=== PATIENT | female | born 1980 | race Caucasian/White ===

== ENCOUNTER 2018-04-03 08:47 | Emergency (ER) | payer OTHER ==
[2018-04-03] MEDS: METOCLOPRAMIDE INJ 10MG/2ML VIAL (J2765) IV (09:30)
[2018-04-03] MEDS: NS 1,000 ML IV (09:30)
[2018-04-03 09:40] LABS: BASO % 0.4 % (0.0-1.0); EOS % 0.4 % (0.0-3.0); HEMATOCRIT 36.6 % (36.0-47.0); HEMOGLOBIN 12.7 g/dl (12.0-15.5); IMMATURE GRANULOCYTE % 0.6 % (0-3.0); LYMPH # 1.4 10^3/uL (1.5-4.5); LYMPH % 26.6 % (24.0-44.0); MEAN CORPUSCULAR HEMOGLOBIN 31.8 pg (27.0-33.0); MEAN CORPUSCULAR HGB CONC 34.7 g/dl (32.0-36.5); MEAN CORPUSCULAR VOLUME 91.7 fl (80.0-96.0); MONO # 0.6 10^3/uL (0.0-0.8); MONO % 11.6 % (0.0-5.0); NEUTROPHILS # 3.2 10^3/uL (1.8-7.7); NEUTROPHILS % 60.4 % (36.0-66.0); PLATELET COUNT, AUTOMATED 221 10^3/uL (150-450); RED BLOOD COUNT 3.99 10^6/uL (4.00-5.40); RED CELL DISTRIBUTION WIDTH 12.1 % (11.5-14.5); WHITE BLOOD COUNT 5.3 10^3/uL (4.0-10.0)
[2018-04-03 10:33] LABS: ANION GAP 9 MEQ/L (8-16); BLOOD UREA NITROGEN 11 MG/DL (7-18); CARBON DIOXIDE LEVEL 25 MEQ/L (21-32); CHLORIDE LEVEL 101 MEQ/L (98-107); CREATININE FOR GFR 0.62 MG/DL (0.55-1.30); GLOMERULAR FILTRATION RATE > 60.0 (>60); GLUCOSE, FASTING 78 MG/DL (70-100); HCG, SERUM QUANTITATIVE 146742 MIU/ML; POTASSIUM SERUM 3.3 MEQ/L (3.5-5.1); SODIUM LEVEL 135 MEQ/L (136-145)
[2018-04-03] MEDS: POTASSIUM CHLORIDE 10 MEQ SR TABLET PO (11:08)
== END 2018-04-03 11:46 | disposition home or self-care (01) ==
LOC: M ED 08:47
DX: O21.9 Vomiting of pregnancy, unspecified (principal); O99.89 Other specified diseases and conditions complicating pregnancy, childbirth and the puerperium; M79.7 Fibromyalgia; M51.9 Unspecified thoracic, thoracolumbar and lumbosacral intervertebral disc disorder; Z3A.00 Weeks of gestation of pregnancy not specified; Z79.890 Hormone replacement therapy; Z98.890 Other specified postprocedural states; Z88.8 Allergy status to other drugs, medicaments and biological substances; Z88.5 Allergy status to narcotic agent
CPT/HCPCS: J2765

== ENCOUNTER → 2018-04-13 | Outpatient (CLI) | payer OTHER ==
[2018-04-13 14:05] LABS: BASO % 0.2 % (0.0-1.0); HEMATOCRIT 34.8 % (36.0-47.0); HEMOGLOBIN 11.5 g/dl (12.0-15.5); IMMATURE GRANULOCYTE % 0.6 % (0-3.0); LYMPH # 2.3 10^3/uL (1.5-4.5); LYMPH % 24.2 % (24.0-44.0); MEAN CORPUSCULAR HEMOGLOBIN 31.5 pg (27.0-33.0); MEAN CORPUSCULAR VOLUME 95.3 fl (80.0-96.0); MONO % 10.3 % (0.0-5.0); NEUTROPHILS % 64.7 % (36.0-66.0); PLATELET COUNT, AUTOMATED 290 10^3/uL (150-450); RED BLOOD COUNT 3.65 10^6/uL (4.00-5.40); RED CELL DISTRIBUTION WIDTH 12.9 % (11.5-14.5); WHITE BLOOD COUNT 9.3 10^3/uL (4.0-10.0)
[2018-04-13 14:32] LABS: FREE T4 1.28 NG/DL (0.76-1.46)
[2018-04-13 15:42] LABS: CHLAMYDIA DNA AMPLIFICATION NEGATIVE (NEGATIVE); GC DNA AMPLIFICATION NEGATIVE (NEGATIVE)
[2018-04-14 12:04] LABS: RUBELLA IgG QUALITATIVE SUSCEPTIBLE (IMMUNE)
[2018-04-14 12:19] LABS: HBsAg Prenatal NEGATIVE (NEGATIVE)
[2018-04-14 12:42] LABS: HEPATITIS C VIRUS ABY INDEX < 0.0 INDEX (<0.8)
[2018-04-14 12:42] LABS: HIV 1&2 SCREEN CENTAUR NEGATIVE (NEGATIVE)
== END ==
LOC: M SMT 10:16
DX: Z36.89 Encounter for other specified antenatal screening (principal); Z3A.10 10 weeks gestation of pregnancy
CPT/HCPCS: 84443

== ENCOUNTER → 2018-04-27 | Outpatient (REF) | payer OTHER ==
[2018-04-29 14:10] LABS: HPV HYBRID CAPTURE II Negative (Negative)
== END ==
LOC: M LAB REF 13:27
DX: Z12.4 Encounter for screening for malignant neoplasm of cervix (principal)

== ENCOUNTER → 2018-06-14 | Outpatient (CLI) | payer OTHER | LOC: M RAD 08:25 | DX: Z34.82 Encounter for supervision of other normal pregnancy, second trimester (principal); Z36.89 Encounter for other specified antenatal screening; Z3A.19 19 weeks gestation of pregnancy | CPT/HCPCS: 76817 ==

== ENCOUNTER → 2018-07-06 | Outpatient (CLI) | payer OTHER | LOC: M SMT 13:29 | DX: O28.5 Abnormal chromosomal and genetic finding on antenatal screening of mother (principal) | CPT/HCPCS: 36415 ==

== ENCOUNTER → 2018-08-02 | Outpatient (CLI) | payer OTHER ==
[2018-08-02 14:04] LABS: HEMATOCRIT 29.2 % (36.0-47.0); HEMOGLOBIN 9.5 g/dl (12.0-15.5); MEAN CORPUSCULAR HEMOGLOBIN 32.4 pg (27.0-33.0); MEAN CORPUSCULAR HGB CONC 32.5 g/dl (32.0-36.5); MEAN CORPUSCULAR VOLUME 99.7 fl (80.0-96.0); PLATELET COUNT, AUTOMATED 234 10^3/uL (150-450); RED BLOOD COUNT 2.93 10^6/uL (4.00-5.40); RED CELL DISTRIBUTION WIDTH 13.5 % (11.5-14.5); WHITE BLOOD COUNT 7.3 10^3/uL (4.0-10.0)
[2018-08-02 15:00] LABS: GLUCOSE CHALLENGE TEST 1 HOUR 97 MG/DL (LESS THAN 140)
[2018-08-02 15:00] LABS: FREE T4 1.09 NG/DL (0.76-1.46)
== END ==
LOC: M LAB 12:35
DX: Z34.82 Encounter for supervision of other normal pregnancy, second trimester (principal); Z36.89 Encounter for other specified antenatal screening
CPT/HCPCS: 82950

== ENCOUNTER → 2018-08-14 | Outpatient (CLI) | payer OTHER | LOC: M RAD 08:58 | DX: Z34.82 Encounter for supervision of other normal pregnancy, second trimester (principal); Z36.89 Encounter for other specified antenatal screening; Z3A.28 28 weeks gestation of pregnancy | CPT/HCPCS: 76816 ==

== ENCOUNTER → 2018-10-13 | Outpatient (REF) | payer OTHER | LOC: M LAB REF 17:20 | DX: O09.523 Supervision of elderly multigravida, third trimester (principal) | CPT/HCPCS: 87081 ==

== ENCOUNTER 2018-10-27 04:58 | Inpatient (IN) | payer OTHER ==
[2018-10-27 05:47] LABS: HEMATOCRIT 37.4 % (36.0-47.0); HEMOGLOBIN 12.3 g/dl (12.0-15.5); MEAN CORPUSCULAR HEMOGLOBIN 32.5 pg (27.0-33.0); MEAN CORPUSCULAR HGB CONC 32.9 g/dl (32.0-36.5); MEAN CORPUSCULAR VOLUME 98.7 fl (80.0-96.0); PLATELET COUNT, AUTOMATED 196 10^3/uL (150-450); RED BLOOD COUNT 3.79 10^6/uL (4.00-5.40); RED CELL DISTRIBUTION WIDTH 15.2 % (11.5-14.5); WHITE BLOOD COUNT 8.9 10^3/uL (4.0-10.0)
[2018-10-27 06:50] LABS: ALT/SGPT 13 U/L (12-78); AST/SGOT 25 U/L (7-37); BILIRUBIN,TOTAL 0.2 MG/DL (0.2-1.0); CREATININE FOR GFR 0.74 MG/DL (0.55-1.30); GLOMERULAR FILTRATION RATE > 60.0 (>60); LDH LACTATE DEHYDROGENASE 255 U/L (84-246); URIC ACID 6.3 MG/DL (2.6-6.0)
[2018-10-27] MEDS: BICITRA 30ML SOLN UDC PO (07:13)
[2018-10-27] MEDS: LR 800 ML IV (07:13)
[2018-10-27] MEDS: LR 1,000 ML IV ×2 (07:14→19:19)
[2018-10-27] MEDS ORDERED: OXYTOCIN INJ 10 UNITS/ML VIAL (J2590) As Ordered ×2 (07:15)
[2018-10-27] MEDS ORDERED: MORPHINE PRES-FREE INJ 10 MG/10 ML VIAL (J2274) As Ordered (07:15)
[2018-10-27 07:21] LABS: CREATININE,RANDOM URINE 85.9 MG/DL
[2018-10-27 07:21] LABS: TOTAL PROTEIN,RANDOM URINE 342.2 MG/DL (0.0-12.0)
[2018-10-27] MEDS ORDERED: NALBUPHINE HCL 10 MG/ML AMP (J2300) IV (07:45)
[2018-10-27] MEDS ORDERED: NALOXONE INJ 0.4 MG/1 ML VIAL (J2310) IV ×2 (07:45)
[2018-10-27] MEDS ORDERED: ONDANSETRON 4MG/2ML VIAL (J2405) IV ×3 (07:45→09:45)
[2018-10-27] MEDS ORDERED: METOCLOPRAMIDE INJ 10MG/2ML VIAL (J2765) IV (07:45)
[2018-10-27] MEDS ORDERED: ONDANSETRON 4MG/2ML VIAL (J2405) As Ordered (08:20)
[2018-10-27] MEDS ORDERED: KETOROLAC 30 MG/ML VIAL (J1885) As Ordered (09:13)
[2018-10-27] MEDS ORDERED: MEASLES,MUMPS,RUBELLA VACCINE INJ (MMR-II) (90707) SC (09:15)
[2018-10-27] MEDS ORDERED: DOCUSATE SODIUM 100 MG CAP PO (09:15)
[2018-10-27] MEDS: KETOROLAC 30 MG/ML VIAL (J1885) IV ×3 (09:33→22:13)
[2018-10-27] MEDS ORDERED: fentaNYL 100 MCG/2 ML INJECTION (J3010) IV (09:45)
[2018-10-27] MEDS ORDERED: KETOROLAC 30 MG/ML VIAL (J1885) IV (09:45)
[2018-10-27] MEDS ORDERED: PERCOCET 5MG/325MG TAB PO (09:45)
[2018-10-27] MEDS ORDERED: OXYTOCIN 30 UNITS IN 0.9% NaCl 500ML IV BAG (J2590) As Ordered (10:14)
[2018-10-27] MEDS: OXYTOCIN DRIP 30 UNITS in APPROPRIATE DILUENT 1 EA IV ×2 (10:15→11:23)
[2018-10-27] MEDS ORDERED: hydrALAZINE INJ 20 MG/ML VIAL As Ordered (18:27)
[2018-10-27] MEDS: hydrALAZINE INJ 20 MG/ML VIAL IV (18:38)
[2018-10-27] MEDS: diphenhydrAMINE 50 MG CAP PO (20:49)
[2018-10-28] MEDS: hydrALAZINE INJ 20 MG/ML VIAL IV (02:54)
[2018-10-28] MEDS: KETOROLAC 30 MG/ML VIAL (J1885) IV (03:28)
[2018-10-28] MEDS: LR 1,000 ML IV (05:44)
[2018-10-28 07:21] LABS: HEMATOCRIT 31.2 % (36.0-47.0); PLATELET COUNT, AUTOMATED 151 10^3/uL (150-450); RED BLOOD COUNT 3.12 10^6/uL (4.00-5.40); RED CELL DISTRIBUTION WIDTH 15.6 % (11.5-14.5); WHITE BLOOD COUNT 10.9 10^3/uL (4.0-10.0)
[2018-10-28 07:23] LABS: HEMOGLOBIN 10.3 g/dl (12.0-15.5)
[2018-10-28] MEDS: PRENATAL VITAMINS CHEWABLE TABLET PO (09:01)
[2018-10-28] MEDS: NIFEdipine 30 MG XL TAB PO (09:02)
[2018-10-28] MEDS: PERCOCET 5MG/325MG TAB PO ×4 (09:17→23:42)
[2018-10-28] MEDS: IBUPROFEN 800 MG TAB PO ×2 (12:07→19:30)
[2018-10-29] MEDS: IBUPROFEN 800 MG TAB PO ×2 (03:58→12:33)
[2018-10-29] MEDS: PERCOCET 5MG/325MG TAB PO (06:18)
[2018-10-29] MEDS: NIFEdipine 30 MG XL TAB PO (09:20)
[2018-10-29] MEDS: PRENATAL VITAMINS CHEWABLE TABLET PO (09:20)
[2018-10-29] MEDS: RHOGAM 300 MCG (1500 IU) INJ (J2790) IM (15:21)
== END 2018-10-29 17:30 | disposition home or self-care (01) | DRG 540 ==
LOC: M LDI 04:58 → M OBS 10:27
PROC: 10D00Z1 Extraction of Products of Conception, Low, Open Approach (ICD-10-PCS; principal; 2018-10-27 07:30)
DX: O34.211 Maternal care for low transverse scar from previous cesarean delivery (principal); O69.81X0 Labor and delivery complicated by cord around neck, without compression, not applicable or unspecified; Z3A.39 39 weeks gestation of pregnancy; Z37.0 Single live birth; O14.95 Unspecified pre-eclampsia, complicating the puerperium

== ENCOUNTER → 2021-03-29 | Outpatient (CLI) | payer OTHER ==
[~2021-03-29] MED LIST: ACET500C; ALLE25CA; ATOR1TAB19 PO; FERR325T3 PO; FISH1000; IBUP80TA PO; LEVO100T5 PO; OXYC1TAB23 PO; PRENTAB29 PO; REGL10TA6 PO; SUDA30TA; TYLE500T78 PO; ZANA4CAP
--- NOTE | 2021-03-29 14:35 | REP ---
INDICATION: CONTUSION OF LEFT MIDDLE FINGER W/O DAMAGE TO NAIL, INIT COMPARISON: None. TECHNIQUE: Four views left 3rd digit. FINDINGS: There is mildly displaced oblique fracture of the mid aspect of the 3rd proximal phalanx.There is no other evidence of acute fracture or dislocation. IMPRESSION: Mildly displaced oblique fracture 3rd proximal phalanx. <Electronically signed by Quentin Steen > 03/29/21 [id number]
== END ==
LOC: M RAD 13:40
PROVIDERS: ATTEND Physician Assistant
DX: S60.032A Contusion of left middle finger without damage to nail, initial encounter (principal); W18.30XA Fall on same level, unspecified, initial encounter; Y92.009 Unspecified place in unspecified non-institutional (private) residence as the place of occurrence of the external cause

== ENCOUNTER → 2022-09-08 | Outpatient (CLI) | payer OTHER ==
[2022-09-08 16:23] LABS: BASO % 0.4 % (0.0-1.0); EOS # 0.1 10^3/uL (0.0-0.5); EOS % 2.5 % (0.0-3.0); HEMATOCRIT 36.1 % (36.0-47.0); HEMOGLOBIN 11.7 g/dl (12.0-15.5); LYMPH # 1.5 10^3/uL (1.5-5.0); LYMPH % 29.6 % (24.0-44.0); MEAN CORPUSCULAR HEMOGLOBIN 34.7 pg (27.0-33.0); MEAN CORPUSCULAR HGB CONC 32.4 g/dl (32.0-36.5); MEAN CORPUSCULAR VOLUME 107.1 fl (80.0-96.0); MONO # 0.4 10^3/uL (0.0-0.8); MONO % 7.9 % (2.0-8.0); NEUTROPHILS # 3.1 10^3/uL (1.5-8.5); NEUTROPHILS % 59.4 % (36.0-66.0); PLATELET COUNT, AUTOMATED 261 10^3/uL (150-450); RED BLOOD COUNT 3.37 10^6/uL (4.00-5.40); WHITE BLOOD COUNT 5.2 10^3/uL (4.0-10.0)
[2022-09-08 17:51] LABS: ALBUMIN 3.5 GM/DL (3.2-5.2); ALT/SGPT 53 U/L (12-78); BILIRUBIN,TOTAL 0.5 MG/DL (0.2-1.0); BLOOD UREA NITROGEN 14 MG/DL (7-18); CALCIUM LEVEL 8.7 MG/DL (8.5-10.1); CARBON DIOXIDE LEVEL 24 MEQ/L (21-32); CHLORIDE LEVEL 109 MEQ/L (98-107); CHOLESTEROL LEVEL 146 MG/DL (<200); CHOLESTEROL RISK RATIO 3.318 (<5); CREATININE FOR GFR 0.79 MG/DL (0.55-1.30); GLOMERULAR FILTRATION RATE > 60.0 (>58); GLUCOSE, FASTING 91 MG/DL (70-100); HDL CHOLESTEROL 44 MG/DL (>40); LDL CHOLESTEROL 88 MG/DL (<100); NON-HDL-C 102 MG/DL; POTASSIUM SERUM 3.5 MEQ/L (3.5-5.1); SODIUM LEVEL 140 MEQ/L (136-145); THYROID STIMULATING HORMONE 0.032 uIU/ML (0.358-3.740); TOTAL PROTEIN 6.8 GM/DL (6.4-8.2); TRIGLYCERIDES LEVEL 71 MG/DL (<150)
== END ==
LOC: M PLALAB 11:59
PROVIDERS: ATTEND Physician Assistant
DX: E03.9 Hypothyroidism, unspecified (principal); E78.5 Hyperlipidemia, unspecified

== ENCOUNTER → 2022-11-25 | Outpatient (CLI) | payer OTHER | LOC: M WHC 15:08 | PROVIDERS: ATTEND Obstetrics & Gynecology | DX: Z12.31 Encounter for screening mammogram for malignant neoplasm of breast (principal) ==

== ENCOUNTER → 2022-12-13 | Outpatient (CLI) | payer OTHER | LOC: M WHC 13:11 | PROVIDERS: ATTEND Obstetrics & Gynecology | DX: D49.3 Neoplasm of unspecified behavior of breast (principal) ==

== ENCOUNTER → 2024-08-20 | Outpatient (REF) | payer OTHER | LOC: M LAB REF 11:37 | PROVIDERS: ATTEND Nurse Practitioner Family | DX: R19.7 Diarrhea, unspecified (principal) ==

== ENCOUNTER 2024-09-16 08:23 | Emergency (ER) | payer OTHER ==
[~2024-09-16] VITALS: Ht 152.4 cm; Wt 48.7 kg
[2024-09-16 08:27] VITALS: TEMP 97.8
[2024-09-16] MEDS ORDERED: LEVO125T4 (08:40)
[2024-09-16] MEDS ORDERED: ATOR1TAB19 (08:40)
[2024-09-16] MEDS ORDERED: EQL50TAB2 PO (08:40)
[2024-09-16 09:13] VITALS: BP 136/75; O2SAT 99
[2024-09-16] MEDS: BENZONATATE 100MG CAPSULE PO ONE (09:39)
[2024-09-16] MEDS: ALBUTEROL SULFATE 2.5MG/0.5ML INH NEB SOLN NEB ONE (10:06)
[2024-09-16] MEDS ORDERED: BENZ200C70 PO (10:23)
[2024-09-16] MEDS ORDERED: VENTAER INH (10:23)
== END 2024-09-16 10:35 | disposition home or self-care (01) ==
LOC: M ED 08:23
DX: R06.2 Wheezing (principal); B34.1 Enterovirus infection, unspecified; E78.5 Hyperlipidemia, unspecified; E03.9 Hypothyroidism, unspecified; F17.210 Nicotine dependence, cigarettes, uncomplicated; Z88.8 Allergy status to other drugs, medicaments and biological substances; Z79.51 Long term (current) use of inhaled steroids; Z79.899 Other long term (current) drug therapy

== ENCOUNTER → 2024-10-04 | Outpatient (CLI) | payer OTHER ==
[~2024-10-04] MED LIST changes: +ATOR1TAB19; +BARIUM SULFATE 700 MG TABLET (E-Z-DISK) As Ordered ONE; +BENZ200C70 PO; +E-Z-PAQUE 96% w/w SUSP 176GM BTL As Ordered ONE; +EQL50TAB2 PO; +LEVO125T4; +VARIBAR NECTAR 40% w/v 240ML SUSP BTL As Ordered ONE; +VARIBAR PUDDING 40% w/v 230ML TUBE As Ordered ONE; +VENTAER INH
== END ==
LOC: M RAD 11:17
PROVIDERS: ATTEND Nurse Practitioner Family
DX: R13.10 Dysphagia, unspecified (principal)

== ENCOUNTER → 2024-11-02 | Outpatient (CLI) | payer OTHER ==
[~2024-11-02] MED LIST changes: -BARIUM SULFATE 700 MG TABLET (E-Z-DISK) As Ordered ONE; -E-Z-PAQUE 96% w/w SUSP 176GM BTL As Ordered ONE; -VARIBAR NECTAR 40% w/v 240ML SUSP BTL As Ordered ONE; -VARIBAR PUDDING 40% w/v 230ML TUBE As Ordered ONE
== END ==
LOC: M WHC 10:52
PROVIDERS: ATTEND Physician Assistant
DX: Z12.31 Encounter for screening mammogram for malignant neoplasm of breast (principal); R92.333 Mammographic heterogeneous density, bilateral breasts

== ENCOUNTER 2024-11-24 12:05 | Emergency (ER) | payer OTHER ==
[~2024-11-24] VITALS: Ht 152.4 cm; Wt 50.3 kg
[~2024-11-24 12:05] MED LIST changes: -ATOR1TAB19; -LEVO125T4; +LEVO125T4 PO
[2024-11-24] MEDS ORDERED: AMOX875T2 PO (13:38)
[2024-11-24 13:45] VITALS: BP 113/55; TEMP 97.2; O2SAT 100
[2024-11-24] MEDS: AUGMENTIN 875 MG TAB PO ONE (13:45)
== END 2024-11-24 13:49 | disposition home or self-care (01) ==
LOC: M ED 12:05
DX: K02.9 Dental caries, unspecified (principal); F17.200 Nicotine dependence, unspecified, uncomplicated; Z88.5 Allergy status to narcotic agent; Z88.8 Allergy status to other drugs, medicaments and biological substances; E78.5 Hyperlipidemia, unspecified; E03.9 Hypothyroidism, unspecified; Z79.890 Hormone replacement therapy

== ENCOUNTER → 2024-11-28 | Outpatient (CLI) | payer OTHER ==
[~2024-11-28] MED LIST changes: +AMOX875T2 PO
== END ==
LOC: M WHC 10:54
PROVIDERS: ATTEND Physician Assistant
DX: R92.2 Inconclusive mammogram (principal)

== ENCOUNTER → 2024-12-15 | Outpatient (REF) | payer OTHER ==
[2024-12-15 18:05] LABS: APPEARANCE, URINE CLEAR (CLEAR); BACTERIA, URINE AUTO 2+ (NEGATIVE); BILIRUBIN, URINE AUTO NEGATIVE (NEGATIVE); BLOOD, URINE BLOOD 2+ (NEGATIVE); COLOR, URINE STRAW (YELLOW); GLUCOSE, URINE (UA) AUTO NEGATIVE (NEGATIVE); KETONE, URINE AUTO NEGATIVE (NEGATIVE); LEUKOCYTE ESTERASE, URINE AUTO 2+ (NEGATIVE); NITRITE, URINE AUTO NEGATIVE (NEGATIVE); PROTEIN, URINE AUTO NEGATIVE (NEGATIVE); RBC, URINE AUTO 1 /HPF (0-3); SPECIFIC GRAVITY URINE AUTO 1.001 (1.002-1.035); SQUAMOUS EPITHELIAL CELL UR AU 0 /HPF (0-6); UROBILINOGEN, URINE AUTO 0.2 mg/dL (0.0-2.0); WBC, URINE AUTO 0 /HPF (0-3)
== END ==
LOC: M LAB REF 17:37
PROVIDERS: ATTEND Physician Assistant
DX: N39.0 Urinary tract infection, site not specified (principal)

== ENCOUNTER 2025-02-08 12:45 | Day surgery (SDC) | payer OTHER ==
[~2025-02-08] VITALS: Ht 152.4 cm; Wt 47.6 kg
[2025-02-08] MEDS ORDERED: LIDOCAINE 2% 100MG/5ML SDV (FOR ANES.) As Ordered ONE (14:17)
[2025-02-08] MEDS ORDERED: GLYCOPYRROLATE INJ 0.2 MG/ML 2 ML VIAL As Ordered ONE (14:17)
[2025-02-08] MEDS ORDERED: propofoL 200 MG/20 ML VIAL As Ordered ONE (14:17)
[2025-02-08 14:53] VITALS: TEMP 97.6
[2025-02-08 15:10] VITALS: BP 111/56; O2SAT 100
== END 2025-02-08 15:19 | disposition home or self-care (01) ==
LOC: M OPP 12:45
PROVIDERS: ATTEND Internal Medicine Gastroenterology
DX: K64.8 Other hemorrhoids (principal); R19.7 Diarrhea, unspecified; R13.10 Dysphagia, unspecified; Z88.5 Allergy status to narcotic agent; Z88.8 Allergy status to other drugs, medicaments and biological substances; Z79.899 Other long term (current) drug therapy; F17.210 Nicotine dependence, cigarettes, uncomplicated
CPT/HCPCS: 43239; 45380; 88305; J1596